=== PATIENT | female | born 1960 | race Caucasian/White ===

== ENCOUNTER 2023-03-09 11:00 | Outpatient (RCR) | payer OTHER, SELFPAY ==
--- NOTE | 2023-02-13 09:50 | HP.PTEVAL_ITS ---
Patient's Visit Information Visit Information Visit Information: ROGER CHAO is a 63 year old F referred to Physical Therapy by Dr. Nima Manning DPM with a diagnosis of R post tibial tendonitis. Date of Evaluation: 02/13/23 Physical Therapist: Gerald Bourne DPT, OCS, CSCS Visit Plan Frequency: 3x /Week Duration: 4-6 Weeks Plan: 3x/week for 3-6 weeks for 1. US nonthermal R PTT insertion 2 massage and mobs to R ankle and foot and PROM inv, ev, DF 3. strength and proprioception R ankle Pt may bring in TENS for instruct ensure pt taking stress off R ankle to heal Subjective Subjective: 3 weeks of r ankle pain, may have had a gout attack. Couldn't walk properly and went out of town and did lots of walking and then too painful to walk., Achilles flared up as she was not walking properly. 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 Pain was 9/10 and could not walk 10 feet. This weekend limped and avoided standing but hurt at 4. Worse later in day. This is new to her. Went to [facility] and took blood draws and x rays 2 weeks ago and normal. Went to foot doctor and he poked around and found soreness. he sent for PT and gave antiinflammatory which she has not filled due to side effects. Doing achilles stretch also from doctor. Sleep is in recliner for 2 weeks due to bed upstairs. Steps are hard. L leg taking much of stress and sometimes aches at night. Not employed. Basic ADLs are getting easier but hard to cook and turn in kitchen. Basic ADLS are getting done herself slowly. Hobbies: sitting hobbies sewing quilting and can do those. Was hard to sew the first couple weeks, avoided driving for first two weeks. Got insoles from doctor but cannot wear them due to pain, will bring them in for review. Pain R medial ankle: Pain Intensity (Out of 10): 0 Pain Intensity Range: 0 and 9 Comment: 0 at rest, Objective Objective: Antalgia R ambulating into PT today avoiding pushoff and turning R foot outward and short L step length. Trasnfers bed and chair I. Tender to palpation maximally over R post tib insertion pointedly but nowhere else today. AROM inv R 14 and L 16, pain R. eversion 10 B. DF 0 R and 3 L, PF 50 B. strength inversion R painful and 3+, others 4/5 in B ankles. reflexes 2/3 patella and achilles B. sensation LE WNL to gross light touch. Stance shows decent arch B. tends to stand with R foot pointed out. - talar tilt, stiffness present B in metatarsals and calcaneal mobs. Balance/Special Test Scores Lower Extremity Functional Score: 32 Goals Goal 1:: patient painfree ambulating into PT Goal Time Frame: 4-6 Weeks Goal 2:: I appropr HEP to limit stress to PTT adn future problems Goal Time Frame: 4-6 Weeks Goal 3:: Patient feel 90% better in pain at 1/10 at worst and back to normal actvity Goal Time Frame: 4-6 Weeks Goal 4:: LEFS score48 Goal Time Frame: 4-6 Weeks Rehabilitation Potential Physical Therapy Diagnosis: weakness and pain limiting funciton and ambulation in R ankle, likely walked inverted with gout and flared up PTT insertion. Rehabilitation Potential: Good Anticipated Interventions Patient/Client Instruction: Educate patient on: Condition and Plan of Care For the Purpose of:: To decrease pain, To increase ROM, To improve nutrient delivery to tissue, To improve muscle performance and motor function, To increase tolerance to activity/condition/position, To improve ability of physical actions for home/community/work/leisure and To improve gait and locomotor functions Therapeutic Exercise to Include: Strength training, Balance training, Flexibilty training, Gait and locomotor training, Passive ROM and Active ROM For the Purpose of:: To decrease pain, To increase ROM, To improve nutrient delivery to tissue, To improve muscle performance and motor function, To increase tolerance to activity/condition/position, To improve gait and locomotor functions and To improve health of tissue Manual Therapy Techniques to Include: Mobilization, Passive ROM and Soft tissue mobilization For the Purpose of:: To decrease pain, To increase ROM, To improve nutrient delivery to tissue, To improve muscle performance and motor function and To increase tolerance to activity/condition/position TENS: Yes Cryotherapy (ice pack, ice massage): Yes Ultrasound (thermal/non thermal): Yes For the Purpose of:: To decrease pain, To decrease swelling/inflammation and To improve nutrient delivery to tissue Text: Thank you for the opportunity to evaluate your patient. For Medicare and Medicare HMO plans, please review the plan of care and approve it. It will need to be FAXED BACK to us at [phone] for Medicare purposes. For Medicare only, by signing this I certify the plan of care. Please let me know if there are questions or concerns regarding this plan of care. Physician Signature: Date:
--- NOTE | 2023-03-09 11:50 | HP.PTDCSUM ---
Discharge Summary D/C summary: It has been my pleasure to treat ROGER CHAO referred by MONIQUE CampbellM, with the diagnosis of R post tibial tendonitis for a total of 10 visit(s). Discharge Date: 03/09/23 Please see the following information for a summary of their discharge status. Subjective Subjective: Pain 1-2/10 intermittently still if on feet too much or climbing many steps. Gone quickly here. Avoids stadning too long and walking alot at store. Can't do more than 30 minutes. Sleep is OK. Home activity mostly normal. HEP : daily stretching and band. To doctor in 2-3 weeks. Pain R medial ankle: Pain Intensity (Out of 10): 0 Overall Improvement % Improvement: 95 Objective Objective/Function: 0 DF, still tight on R and L. Good ROM otherwise but resisted inversion still slightly transiently painful. Walks with slight R antalgia today but pretty comfortable. Pt wishes to try HEP vs continued therapy and will f/u with doctor and call if problems or needs more therapy Goals Goal 1:: patient painfree ambulating into PT Goal Progress: Progressing Goal 2:: I appropr HEP to limit stress to PTT adn future problems Goal Progress: Goal Met Goal 3:: Patient feel 90% better in pain at 1/10 at worst and back to normal actvity Goal Progress: Goal Met Goal 4:: LEFS score48 Goal Progress: Goal Met Plan Plan: d/c D/C Information Discharge Comments: Pt to f/u with doctor in two weeks and will continue HEP in the meantime. d/c sentence: If there are questions or concerns regarding this patient's physical therapy, please feel free to call me at [phone]. Thank you for the referral of this patient. Sincerely, Gerald Bourne, DPT, OCS, CSCS Balance/Gait/Functional tests Balance/Special Test Scores Lower Extremity Functional Score: 53 Improvement % Improvement: 95
== END 2023-03-09 19:00 | disposition home or self-care (01) ==
LOC: PT 11:00
PROVIDERS: PCP Family Medicine; Referring Provider Student in an Organized Health Care Education/Training Program; Visit Provider Student in an Organized Health Care Education/Training Program
DX: M76.821 Posterior tibial tendinitis, right leg (principal); M76.61 Achilles tendinitis, right leg
CPT/HCPCS: 97035; 97110; 97140; 97161; 97164

== ENCOUNTER → 2024-08-02 | Outpatient (CLI) | payer OTHER, SELFPAY | END | disposition home or self-care (01) | LOC: MTLAB 08:48 | PROVIDERS: PCP Nurse Practitioner Family; Referring Provider Nurse Practitioner Family; Visit Provider Nurse Practitioner Family | DX: R53.1 Weakness (principal); R53.82 Chronic fatigue, unspecified; H93.19 Tinnitus, unspecified ear; R60.0 Localized edema; I10 Essential (primary) hypertension; I49.9 Cardiac arrhythmia, unspecified; R07.89 Other chest pain; R00.2 Palpitations; R06.00 Dyspnea, unspecified; R05.9 Cough, unspecified; K59.00 Constipation, unspecified; R19.7 Diarrhea, unspecified; K21.9 Gastro-esophageal reflux disease without esophagitis; M25.561 Pain in right knee; R45.4 Irritability and anger; F41.9 Anxiety disorder, unspecified; F32.A Depression, unspecified; E28.9 Ovarian dysfunction, unspecified | CPT/HCPCS: 36415 ==

== ENCOUNTER → 2024-08-30 | Outpatient (CLI) | payer OTHER, SELFPAY ==
--- NOTE | 2024-08-30 08:15 | EKG12_ITS ---
Test Reason : PALPS Blood Pressure : */* mmHG Vent. Rate : 77 BPM Atrial Rate : 77 BPM P-R Int : 166 ms QRS Dur : 90 ms QT Int : 418 ms P-R-T Axes : 55 25 47 degrees QTcB Int : 473 ms Normal sinus rhythm RSR' or QR pattern in V1 suggests right ventricular conduction delay Borderline ECG Confirmed by RAND SOSA ([id number]), newspaper copy editor CAROLIN JAIME ([id number]) on 09/02/2024 8:11:39 AM Referred By: Fay Dc Confirmed By: RAND SOSA
== END | disposition home or self-care (01) ==
LOC: PSN 08:13
PROVIDERS: PCP Nurse Practitioner Family; Referring Provider Nurse Practitioner Family; Visit Provider Nurse Practitioner Family
DX: R00.2 Palpitations (principal); R06.00 Dyspnea, unspecified
CPT/HCPCS: 93005

== ENCOUNTER → 2024-09-10 | Outpatient (CLI) | payer OTHER, SELFPAY ==
[2024-09-10 12:19] LABS: Absolute Lymphocyte Count 1.71 X10^3/uL (0.83-4.51); Absolute Neutrophil Count 3.5 X10^3/uL (2.0-7.7); Basophil# 0.03 X10^3/uL; Basophil% 0.5 % (0-1); Eosinophil# 0.19 X10^3/uL; Eosinophils% 3.3 % (0-5); Hematocrit 36.3 % (37-47); Hemoglobin 11.9 g/dL (12.0-15.0); Lymphocyte # 1.71 X10^3/ul (0.83-4.51); Lymphocyte % 29.8 % (19-41); Mean Corp Hgb Conc 32.8 g/dL (32-36); Mean Corpuscular Volume 88.5 fL (81-99); Mean Platelet Vol. 10.6 fl (6.2-12.0); Monocyte# 0.34 X10^3/uL; Monocyte% 5.9 % (0-10); NRBC Flagged by Analyzer 0 % (0-5); Neutrophil # 3.45 X10^3/uL (2.7-7.7); Neutrophil % 60.2 % (47-70); Platelet Count 278 K/mm3 (150-450); RBC Distribution Width CV 14.3 % (11.6-14.6); RBC Distribution Width SD 45.7 fl (35.1-43.9); White Blood Count 5.7 K/mm3 (4.4-11.0)
[2024-09-10 12:26] LABS: Fibrinogen 485 mg/dl (203-444)
[2024-09-10 12:38] LABS: Hemoglobin A1c 5.7 % (<=5.6)
[2024-09-10 13:09] LABS: ALB/GLOB Ratio 1.1 RATIO (0.9-2.4); AST(SGOT) 21 U/L (<=31); Alanine Aminotransfer ALT/SGPT 19 U/L (<=34); Albumin, Serum 3.9 g/dL (3.4-4.8); Alkaline Phosphatase 75 U/L (35-104); Anion Gap 11 (5-15); BUN 12 mg/dL (4-19); BUN/Creat Ratio 17.6 RATIO (10-20); Calcium,Total 9.3 mg/dL (7.6-11.0); Carbon Dioxide 23.3 mmol/L (21.0-32.0); Chloride 104 mmol/L (98-108); Cholesterol 180 mg/dL (<=200); Creatinine, Serum 0.68 mg/dL (0.70-1.20); EST Glomerular Filtration Rate 97 (>60); Ferritin 136 ng/mL (22-378); Globulin 3.6 g/dL (2.2-4.2); Glucose 97 mg/dL (70-99); High Density Lipoprotein 51 mg/dL; Low Density Lipoprotein Calc. 79 mg/dL; Potassium 4.1 mmol/L (3.3-5.1); Protein, Total 7.6 g/dL (5.9-8.4); Sodium Level 138 mmol/L (133-145); Total Bilirubin 0.38 mg/dL (0.00-1.30); Triglycerides 252 mg/dL; Very Low Density Lipoprotein 50 mg/dL (5-40); Vitamin B12 477 pg/mL (180-914); Vitamin D,25 Hydroxy 17.6 ng/mL (30-100); cholesterol:hdl ratio screen 3.54
[2024-09-10 13:28] LABS: Iron 64 ug/dL (50-170)
--- OUTSIDE RECORDS SUMMARY | 2024-09-10 21:18 | XMS RPT_ITS | CCD ---
Author Organization [facility] ion Partnership [facility] Care Team Providers Care Inspector Rough Castings Name Role Phone EWA UP PAC Admitting Unavailable UP EWA PAC Attending Unavailable ANNEL EWA PAC Primary Care Unavailable CHERRY CIFUENTES Consulting Unavailable PROVIDER, UNKNOWN Consulting Unavailable PROVIDER, UNKNOWN Consulting Unavailable PROVIDER, UNKNOWN Consulting Unavailable Dao MARINE ENGINEERING CONSULTANT-C, Fay Bunn Primary Care Provider Un available Dao MARINE ENGINEERING CONSULTANT-C, Fay Bunn Attending Provider Unava gregorio Dc NP-C, Fay Bunn Referring Provider Unava gregorio Huerta MD, Dr. Lacey Attending Provider Dao MARINE ENGINEERING CONSULTANT, Fay Bunn Referring Unavailabl e Dao MARINE ENGINEERING CONSULTANT, Fay Sepideh Attending Unavailabl e Dao MARINE ENGINEERING CONSULTANT, Fay K Primary Care Unavailabl e Dao MARINE ENGINEERING CONSULTANT, Fay Sepideh Attending Unavailabl e Dao MARINE ENGINEERING CONSULTANT, Fay K Primary Care Unavailabl e Dao MARINE ENGINEERING CONSULTANT, Fay K Referring Unavailabl e Dao MARINE ENGINEERING CONSULTANT, Fay K Referring Unavailabl e Dao MARINE ENGINEERING CONSULTANT, Fay K Attending Unavailabl e Dao MARINE ENGINEERING CONSULTANT, Fay K Primary Care Unavailabl e Dao MARINE ENGINEERING CONSULTANT, Fay K Referring Unavailabl e Rand Huerta Attending Unavailable Dao MARINE ENGINEERING CONSULTANT, Fay K Primary Care Unavailabl e Allergies Allergy Classification Reported Allergen(s) Allergy Type Date of Onset Reaction(s) Facility (1 source) Cephalexin Drug Allergy [facility] Repository (2 sources) Cephalexin Drug Allergy 03-22-2014 Other [facility] (1 source) Cephalexin Drug Allergy 03-22-2014 [facility] Repository Problems Problem Classification Problem Date Documented Da te Episodic/Chronic Cardiac dysrhythmias (2 sources) Palpitations; Translations: [Palpitations] Onset: 08-28-2024 Episodic Malaise and fatigue (1 source) Weakness; Translations: [Weakness] Onset: 08-07-2024 Episodic Other lower respiratory disease (1 source) Dyspnea, unspecified; Translations: [Dyspnea, unspecified] Onset: 08-28-2024 Episodic Results Test Name Value Interpretation Reference Range Facility Electrocardiogram reportOrde red By: Rand Huerta on 09-02-2024 EKG study [facility] Cardi[facility] Services [address] [place] [address] 12 Lead EKG 08/30/24 0821 MR#: [id number] Acct: [id number] Name: ROGER CHAO Rep #:[id number] : 1960 64 From: Rand Huerta MD Attending Dr: Fay Dc, MARINE ENGINEERING CONSULTANT-C Status: REG CLI Ordering Dr: Fay Dc NP MARINE ENGINEERING CONSULTANT-C Date: 08/30/24 Location: N Sex: F C Admitted: Test Reason : PALPS Blood Pressure : */* mmHG Vent. Rate : 77 BPM Atrial Rate : 77 BPM P-R Int : 166 ms QRS Dur : 90 ms QT Int : 418 ms P-R-T Axes : 55 25 47 degrees QTcB Int : 473 ms Normal sinus rhythm RSR' or QR pattern in V1 suggests right ventricular conduction delay Borderline ECG Confirmed by RAND HUERTA ([id number]), editorial manager CAROLIN JAIME ([id number]) on 09/02/2024 8:11:39 AM Referred By: Fay Dc Confirmed By: RAND HUERTA 09/02/24 0811 Date _ Rand Huerta MD CC: MARINE ENGINEERING CONSULTANT-C Fay Dc ~ Signed [facility] Work Phone: [phone] Lead EKGon 08-30-2024 12 Lead EKG [facility] Cardi[facility] Services [address] [place] [address] 12 Lead EKG 08/30/24 0821 MR#: [id number] Acct: [id number] Name: ROGER CHOA Rep #: [id number] : 1960 64 From: Rand Huerta MD Attending Dr: Fay Dc, MARINE ENGINEERING CONSULTANT-C Status: R EG CLI Ordering Dr: Fay Dc MARINE ENGINEERING CONSULTANT MARINE ENGINEERING CONSULTANT-C Date: 08/30 Location: PSN Sex: F C Admitted: Test Reason : PALPS Blood Pressure : */* mmHG Vent. Rate : 77 BPM Atrial Rate : 77 BPM P-R Int : 166 ms QRS Dur : 90 ms QT Int : 418 ms P-R-T Axes : 55 25 47 degrees QTcB Int : 473 ms Normal sinus rhythm RSR' or QR pattern in V1 suggests right ventricular conduction delay Borderline ECG Confirmed by RAND HUERTA ([id number]), editorial manager CAROLIN JAIME ([id number]) on 09/02/2024 8:11:39 AM Referred By: Fay Dc Confirmed By: RAND HUERTA 09/02/24 0811 Date Rand Huerta MD CC: MARINE ENGINEERING CONSULTANT-C Fay Dc Signed [facility] [id number] 08-16-2024 [facility] Misc. 2 [facility] Comment on above: Result Comment: TEST RESULTS LIMITS Amino Acid Profile, Qn, Plasma Taurine, 41.4 umol/L 29.2-132.3 Aspartate, 1.3 umol/L 0.0-7.4 Hydroxyproline, 13.4 umol/L 4.7-35.2 Threonine, 158.5 umol/L 67.8-211.6 Serine, 81.4 umol/L 48.7-145.2 Asparagine, 56.5 umol/L 29.5-84.5 Glutamate, 43.4 umol/L 18.1-155.9 Glutamine, 515.4 umol/L 372.8-701.4 Sarcosine, 1.0 umol/L 0.0-4.0 Alpha-aminoadipate, 1.3 umol/L 0.0-1.9 Proline, 188.6 umol/L 84.8-352.5 Glycine, 315.2 umol/L 144.0-411.0 Alanine, 432.7 umol/L 209.2-515.5 Citrulline, 29.5 umol/L 15.6-46.9 Alpha-aminobutyrate, 15.6 umol/L 5.4-34.5 Valine, 235.8 umol/L 133.0-317.1 Cystine, 46.9 umol/L 15.8-47.3 Methionine, 21.0 umol/L 14.7-35.2 Homocitrulline, <0.5 umol/L 0.0-1.7 Cystathionine, <0.5 umol/L 0.0-0.7 Alloisoleucine, 2.1 umol/L 0.0-3.2 Isoleucine, 59.2 umol/L 32.8-88.3 Leucine, 117.4 umol/L 66.7-165.7 Tyrosine, 69.4 umol/L 27.8-83.3 Phenylalanine, 56.5 umol/L 35.8-76.9 Argininosuccinate, <0.1 umol/L 0.0-3.0 Beta-alanine, 2.8 umol/L 1.1-9.0 Beta-aminoisobutyrate, 0.7 umol/L 0.0-4.3 Homocystine, <0.3 umol/L 0.0-0.2 Gamma-aminobutyrate, <0.5 umol/L 0.0-0.6 Tryptophan, 44.1 umol/L 23.5-93.0 Hydroxylysine, 0.2 umol/L 0.1-0.8 Ornithine, 44.1 umol/L 30.1-101.3 Lysine, 195.5 umol/L 94.0-278.0 Histidine, 60.0 umol/L 47.2-98.5 Arginine, 90.3 umol/L 36.3-119.2 Interpretation No evidence of aminoacidopathy by quantitative plasma amino acid analysis. Director Review Technical Component analysis performed at [facility] Professional Component interpretation performed by: Arabella Glover, PhD, [facility] Director, Biochemical Genetics [facility] LCTGD1, [address] [facility] [address] To discuss these results or other testing for inborn errors of metabolism, please contact our Biochemical Geneticists at [phone] GENE([phone]), [facility] Genetics Customer Service, [place], [place]. Methodology Amino acid concentrations were obtained by LC-MS/MS analysis. TESTING PERFORMED AT [facility]. ORIGINAL REPORT ON FILE IN LAB CONTAINS ADDITIONAL TEST SITE INFORMATION. Performed By: #### L 3410.9994 #### [facility] [address] [place], [address] [id number] 08-12-2024 [facility] Misc. 3 COMMENT Normal . [facility] Comment on above: Result Comment: Test Ordered: [id number] Heavy Metals Profile, Urine Test(s) 011835-Iiuctfl (Total),U; 298085-Cllw, Urine; 970229-Tpqzymy, Urine was developed and its performance characteristics determined by [facility]. It has not been cleared or approved by the Food and Drug Administration. Creatinine(Lead Data Entry Operator),U 0.78 g/L Reference Range: 0.30-3.00 Detection Limit = 0.10 Arsenic (Total),U Note: ug/L MX None Detected Reference Range: 0-9 Detection Limit = 10 As (Total)/Lead Data Entry Operator Ratio MARINE ENGINEERING CONSULTANT NOLAB Reference Range: . Arsenic,Urine 24 Hr MARINE ENGINEERING CONSULTANT NOLAB Reference Range: . Lead, Urine Note: ug/L BN None Detected Reference Range: 0-49 Detection Limit = 1 Lead/Creat. Ratio MARINE ENGINEERING CONSULTANT NOLAB Reference Range: . Lead, Urine (24 Hr) MARINE ENGINEERING CONSULTANT NOLAB Reference Range: . Mercury, Urine Note: ug/L BN None Detected Reference Range: 0-19 Detection Limit = 1 Mercury/Creat. Ratio MARINE ENGINEERING CONSULTANT NOLAB Reference Range: . Mercury,Urine 24 Hr MARINE ENGINEERING CONSULTANT NOLAB Reference Range: . Performed at: [address] [id number] Hot Room Attendant: Bereket Laguna MD, Phone: [phone] Performed at: [facility] [address] [place] [id number] Hot Room Attendant: Leelee Elliott [facility], Phone: [phone] Performed at: [address] [id number] Hot Room Attendant: Mitchel Conklin PhD, Phone: [phone] Performed By: #### L 3410.9996 #### [facility] [address] [facility]. [place], [place], [id number] L3410.9992on 08-06-2024 [facility] COMMENT Normal . [facility] Comment on above: Order Comment: [id number] APOLIPOPROTEIN SST RT Result Comment: Test Ordered: [id number] Apolipoprotein A-1 Apolipoprotein A-1 161 mg/dL Reference Range: 116-209 Performed at: [facility] [address] [id number] Hot Room Attendant: Bereket Laguna MD, Phone: [phone] Performed at: [address] [id number] Hot Room Attendant: Mithcel Conklin PhD, Phone: [phone] Performed By: #### L 3410.9992 #### [facility] [address] [facility]. [place], [place], [id number] CBC (INCLUDES DIFF/PLT)on Basophils (Bld) [#/Vol] 0.036 10*3/uL Normal 0-200 [facility] Comment on above: Performed By: #### 9 , 63 #### [facility] [address] , [address] [place] [phone] Director: Jordan Matta MD Basophils/100 WBC (Bld) 0.4 % Normal [facility] Comment on above: Performed By: #### 9 , 98 #### [facility] [address], [address] [place] [phone] Director: Jordan Matta MD Eosinophils (Bld) [#/Vol] 0.189 10*3/uL Normal 15-500 [facility] Comment on above: Performed By: #### 9 , 6399 #### [facility] [place] [address] Director: Jordan Matta MD Eosinophils/100 WBC (Bld) 2.1 % Normal [facility] Comment on above: Performed By: #### 12 06, 6399 #### [facility] [place] [address] Director: Jordan Matta MD Erythrocyte distribution width (RBC) [Ratio] 12.9 % Normal 11.0-15.0 [facility] Comment on above: Performed By: #### 9 , 6399 #### [facility] [place] [address] Director: Jordan Matta MD Hematocrit (Bld) [Volume fraction] 38.8 % Normal 35.0-45.0 [facility] Comment on above: Performed By: #### 9 , 6399 #### [facility] [place] [address] Director: Jordan Matta MD Hemoglobin (Bld) [Mass/Vol] 12.9 g/dL Normal 11.7-15.5 [facility] Comment on above: Performed By: #### 12 06, 6399 #### [facility] [place] [address] Director: Jordan Matta MD Lymphocytes (Bld) [#/Vol] 1.818 10*3/uL Normal 850-3900 [facility] Comment on above: Performed By: #### 9 , 6399 #### [facility] [place] [address] Director: Jordan Matta MD Lymphocytes/100 WBC (Bld) 20.2 % Normal [facility] Comment on above: Performed By: #### 9 , 6399 #### [facility] of [address] [place] [address] Director: Jordan Matta MD MCH (RBC) [Entitic mass] 28.4 pg Normal 27.0-33.0 [facility] Comment on above: Performed By: #### 9 , 6399 #### [facility] [place] [address] Director: Jordan Matta MD MCHC (RBC) [Mass/Vol] 33.2 g/dL Normal 32.0-36.[address] [facility] Comment on above: Performed By: #### 9 , 6399 #### [facility] [place] [address] Director: Jordan Matta MD MCV (RBC) [Entitic vol] 85.5 fL Normal 80.0-100.0 [facility] Comment on above: Performed By: #### 9 , 6399 #### [facility] [place] [address] Director: Jordan Matta MD Monocytes (Bld) [#/Vol] 0.513 10*3/uL Normal 200-950 [facility] Comment on above: Performed By: #### 9 , 6399 #### [facility] [place] [address] Director: Jordan Matta MD Monocytes/100 WBC (Bld) 5.7 % Normal [facility] Comment on above: Performed By: #### 9 , 6399 #### [facility] [place] [address] Director: Jordan Matta MD Neutrophils (Bld) [#/Vol] 6.444 10*3/uL Normal 9572-8364 [facility] Comment on above: Performed By: #### 9 , 6399 #### [facility] [place] [address] Director: Jordan Matta MD Neutrophils/100 WBC (Bld) 71.6 % Normal [facility] Comment on above: Performed By: #### 9 , 6399 #### [facility] [place] [address] Director: Jordan Matta MD Platelet mean volume (Bld) [Entitic vol] 10.7 fL Normal 7.5-12.5 [facility] Comment on above: Performed By: #### 9 , 6399 #### [facility] [place] [address] Director: Jordan Matta MD Platelets (Bld) [#/Vol] 335 10*3/uL Normal 140-400 [facility] Comment on above: Performed By: #### 9 , 6399 #### [facility] [place] [address] Director: Jordan Matta MD RBC (Bld) [#/Vol] 4.54 10*6/uL Normal 3.80-5.10 [facility] Comment on above: Performed By: #### 9 , 6399 #### [facility] [place] [address] Director: Jordan Matta MD WBC (Bld) [#/Vol] 9.0 10*3/uL Normal 3.8-10.8 [facility] Comment on above: Performed By: #### 9 , 6399 #### [facility] [place] [address] Director: Jordan Matta MD URIC ACIDon 01-21-2023 Urate [Mass/Vol] 5.1 mg/dL Normal 2.5-7.0 [facility] Comment on above: Result Comment: Ther apeutic target for gout patients: <6.0 mg/dL Performed By: #### 9 05, 6399 #### [facility] [place] [address] Director: Jordan Matta MD ANKLE COMPLETE RTon 01-21-20 ANKLE COMPLETE RT [facility] [address] [place] [address] Patient: ROGER CHAO Phone#: : 1960 Age: 63 Gender: F Pt. Type: Out Account: [id number] Location: Ordering: EWA UP Exam Date: 01/20/2023/15:54 Family Phys: Charge Code: 767451 Physician: [place] Order #: [id number] Dose#: PROCEDURE: X-RAY ANKLE COMPLETE RT MIN 3 VIEWS COMPARISON: None. INDICATIONS: Right ankle pain. FINDINGS: BONES: Degenerative changes are present at the ankle. There is no evidence of acute bone abnormality. A small calcaneal spur is present. SOFT TISSUES: Mild lateral soft tissue swelling is present. EFFUSION: None visible. OTHER: Negative. CONCLUSION: 1. Mild degenerative changes are present at the ankle. Dictated by: Madiha Escobar MD on 01/20/2023 at 16:28 Approved by: Madiha Escobar MD on 01/20/2023 at 16:29 Normal [facility] Encounters Encounter Date Encounter Type Care Provider Facility Start: 08-30-2024 End: 08-30-2024 Non-patient / Non-visit Dr. Rand Huerta MD -[facility] Work Phone: Start: 08-30-2024 End: 08-30-2024 ambulatory Fay Dc NP-C [facility] Work Phone: Start: 08-30-2024 End: 08-30-2024 Patient encounter procedure Fay Dc NP-C -Pulmonary Services/Neurology Work Phone: Start: 08-30-2024 End: 08-30-2024 ambulatory Fay Dc NP Facility:[facility] Start: 08-02-2024 End: 08-02-2024 ambulatory Fay Dc NP-C [facility] Work Phone: Start: 08-02-2024 End: 08-02-2024 Patient encounter procedure Fay Dc NP-C -[facility] Phone: Start: 08-02-2024 End: 08-02-2024 ambulatory Fay Dc NP Facility:[facility] Start: 01-20-2023 End: 01-20-2023 ambulatory EWA UP [facility] Procedures Date Procedure Procedure Detail Performing Clinician Start: 08-02-2024 End: 08-02-2024 Procedure Fay Dc MARINE ENGINEERING CONSULTANT-C Comment on above: Test Ordered: [id number] Apolipoprotein A-1A polipoprotein A-1 161 mg/dL Reference Range: 116-209Performed at: [address] [id number] Director: Bereket Laguna MD, Phone: [phone] at: [address] [id number] Director: Mitchel Conklin PhD, Phone: [phone] Test Ordered: [id number] Heavy Metals Profile, UrineTest(s) 597128-Pqgfpfh (Total),U; 477267-Vyci, Urine;382201-Grxpxta, Urinewas developed and its performance characteristicsdetermined by [facility]. It has not been cleared or approvedby the Food and Drug Administration.Creatinine(Lead Data Entry Operator),U 0.78 g/L Reference Range: 0.30-3.00 Detection Limit = 0.10Arsenic (Total),U Note: ug/L MX None Detected Reference Range: 0-9 Detection Limit = 10As (Total)/Lead Data Entry Operator Ratio MARINE ENGINEERING CONSULTANT NOLAB Reference Range: .Arsenic,Urine 24 Hr MARINE ENGINEERING CONSULTANT NOLAB Reference Range: .Lead, Urine Note: ug/L BN None Detected Reference Range: 0-49 Detection Limit = 1Lead/Creat. Ratio MARINE ENGINEERING CONSULTANT NOLAB Reference Range: .Lead, Urine (24 Hr) MARINE ENGINEERING CONSULTANT NOLAB Reference Range: .Mercury, Urine Note: ug/L BN None Detected Reference Range: 0-19 Detection Limit = 1Mercury/Creat. Ratio MARINE ENGINEERING CONSULTANT NOLAB Reference Range: .Mercury,Urine 24 Hr MARINE ENGINEERING CONSULTANT NOLAB Reference Range: .Performed at: [address] [id number] Director: Bereket Laguna MD, Phone: [phone] at: [facility] [address] [place] [id number] Director: Leelee Elliott [facility], Phone: [phone] at: [facility] Center[facility]mohj[address] [place], [place] [id number] Director: Mitchel Conklin PhD, Phone: [phone] TEST RESULTS LIMITSA lopez Acid Profile, Qn, Plasma Taurine, 41.4 umol/L 29.2-132.3 Aspartate, 1.3 umol/L 0.0-7.4 Hydroxyproline, 13.4 umol/L 4.7-35.2 Threonine, 158.5 umol/L 67.8-211.6 Serine, 81.4 umol/L 48.7-145.2 Asparagine, 56.5 umol/L 29.5-84.5 Glutamate, 43.4 umol/L 18.1-155.9 Glutamine, 515.4 umol/L 372.8-701.4 Sarcosine, 1.0 umol/L 0.0-4.0 Alpha-aminoadipate, 1.3 umol/L 0.0-1.9 Proline, 188.6 umol/L 84.8-352.5 Glycine, 315.2 umol/L 144.0-411.0 Alanine, 432.7 umol/L 209.2-515.5 Citrulline, 29.5 umol/L 15.6-46.9 Alpha-aminobutyrate, 15.6 umol/L 5.4-34.5 Valine, 235.8 umol/L 133.0-317.1 Cystine, 46.9 umol/L 15.8-47.3 Methionine, 21.0 umol/L 14.7-35.2 Homocitrulline, <0.5 umol/L 0.0-1.7 Cystathionine, <0.5 umol/L 0.0-0.7 Alloisoleucine, 2.1 umol/L 0.0-3.2 Isoleucine, 59.2 umol/L 32.8-88.3 Leucine, 117.4 umol/L 66.7-165.7 Tyrosine, 69.4 umol/L 27.8-83.3 Phenylalanine, 56.5 umol/L 35.8-76.9 Argininosuccinate, <0.1 umol/L 0.0-3.0 Beta-alanine, 2.8 umol/L 1.1-9.0 Beta-aminoisobutyrate, 0.7 umol/L 0.0-4.3 Homocystine, <0.3 umol/L 0.0-0.2 Gamma-aminobutyrate, <0.5 umol/L 0.0-0.6 Tryptophan, 44.1 umol/L 23.5-93.0 Hydroxylysine, 0.2 umol/L 0.1-0.8 Ornithine, 44.1 umol/L 30.1-101.3 Lysine, 195.5 umol/L 94.0-278.0 Histidine, 60.0 umol/L 47.2-98.5 Arginine, 90.3 umol/L 36.3-119.2InterpretationNo evidence of aminoacidopathy by quantitative plasma amino acid analysis.Director ReviewTechnical Component analysis performed at [facility] RTPProfessional Component interpretation performed by:Arabella Glover, PhD, FACMGDirector, Biochemical GeneticsF[facility]burg [facility] Hospital [facility] [facility] [address]Za discuss these results or other testing for inborn errorsof metabolism, please contact our Biochemical Geneticists [phone] [phone]), [facility] [employer] Customer Service, [place], [place].Methodology Amino acid concentrations were obtained by LC-MS/MS analysis. TESTING PERFORMED AT [facility]. ORIGINAL REPORT ON FILE IN LAB CONTAINS ADDITIONAL TEST SITE INFORMATION. Plan of Treatment Date Care Activity Detail Author Start: 10-02-2024 ambulatory Ambulatory Facility:[facility] Start: 08-02-2024 End: 08-02-2024 Procedure [facility] spital Immunizations Immunization Date Immunization Notes Care Provider Josh danielle 03-22-2014 tetanus toxoid, redu margaret diphtheria toxoid, and acellular pertussis vaccine, adsorbed Fay ADAME [facility] Payers Date Payer Category Payer Self-pay 2006 Unknown [id number] 2006 Unknown [id number] 1960 Unknown [id number] 2.16.8 [id number] Unknown [id number] 2.16.8 [id number] Unknown [id number] 2.16.8 [id number] Unknown [id number] 2.16.8 [id number] Unknown [id number] 2.16.8 [id number] Social History Date Type Detail Facility Start: 03-22-2014 Tobacco smoking stat [facility] Never smoked tobacco (finding) [facility] Start: 1960 Sex Assigned At Female [facility] Evaluation note Note Date & Type Note Facility Evaluation note No assessment information availa ble [facility] Work Phone: Reason for referral (narrative) Note Date & Type Note Facility Reason for referral (narrative) No reason for referral information available [facility] Work Phone: Summary Purpose Family History No Family History Records FoundNo Family History Records FoundNo Family History Records Found Advance Directives No Advanced Directives Records FoundNo Advanced Directives Records FoundNo Advanced Directives Records Found Chief Complaint and Reason for Visit Chief Complaint Admit Date PALPITATIONS August 30, 2024 8:12a m PALPITATIONS August 30, 2024 8:21a m Additional Source Comments INFORMATION SOURCE (unrecogn ized section and content) DATE CRE[facility] DATE CREATED AUTHOR AUTHOR'S ORGANIZ ATION 01/22/2023 [facility] DATE CREATED AUTHOR AUTHOR'S ORGANIZ ATION 09/07/2024 [facility] Care Teams (unrecognized sec tion and content) Team Status: Active Member Role Status Dates Fay Dc MARINE ENGINEERING CONSULTANT, MARINE ENGINEERING CONSULTANT-C Primary Care Provider Activ e Team Status: Inactive Member Role Status Dates Fay Dc MARINE ENGINEERING CONSULTANT, MARINE ENGINEERING CONSULTANT-C Primary Care Provider Activ e Start: August 02, 2024 End: August 02, 2024 Fay Dc NP, MARINE ENGINEERING CONSULTANT-C Attending Provider Active Start: August 02, 2024 End: August 02, 2024 Fay Dc MARINE ENGINEERING CONSULTANT, MARINE ENGINEERING CONSULTANT-C Referring Provider Active Start: August 02, 2024 End: August 02, 2024 Team Status: Inactive Member Role Status Dates Fay Dc NP, MARINE ENGINEERING CONSULTANT-C Primary Care Provider Activ e Start: August 30, 2024 End: August 30, 2024 Fay Dc NP, MARINE ENGINEERING CONSULTANT-C Attending Provider Active Start: August 30, 2024 End: August 30, 2024 Fay Dc MARINE ENGINEERING CONSULTANT, MARINE ENGINEERING CONSULTANT-C Referring Provider Active Start: August 30, 2024 End: August 30, 2024 Team Status: Active Member Role Status Dates Fay Dc NP, MARINE ENGINEERING CONSULTANT-C Primary Care Provider Activ e Start: August 30, 2024 End: August 30, 2024 Fay Dc MARINE ENGINEERING CONSULTANT, MARINE ENGINEERING CONSULTANT-C Referring Provider Active Start: August 30, 2024 End: August 30, 2024 Dr. Rand Huerta MD Attending Provider Active Start: August 30, 2024 End: August 30, 2024 Goals (unrecognized section and content) Goals may be documented in a n alternate sectionGoals may be documented in an alternate section FOR RECORDS PERTAINING TO PATIENTS WHO ARE OR HAVE BEEN ENROLLED IN A CHEMICAL DEPENDENCY/SUBSTANCEABUSE PROGRAM, SOME INFORMATION MAY BE OMITTED. This clinical summary was aggregated from multiple sources. Caution should be exercised in using it in the provision of clinical care. This summary normalizes information from multiple sources, and as a consequence, information in this document may materially change the coding, format and clinical context of patient data. In addition, data may be omitted in some cases. CLINICAL DECISIONS SHOULD BE BASED ON THE PRIMARY CLINICAL RECORDS. [facility]. provides no warranty or guarantee of the accuracy or completeness of information in this document.
[2024-09-14 01:07] LABS: Coxsackie B-2 Ab Negative (Neg:<1:100); Coxsackie B-3 Ab Negative (Neg:<1:100); Coxsackie B-4 Ab Negative (Neg:<1:100); Coxsackie B-6 Ab Negative (Neg:<1:100); EBV Acute VCA IgM < 36.0 U/mL (0.0-35.9); EBV-VCA IgG > 600.0 U/mL (0.0-17.9); Lipoprotein A <8.4 nmol/L (<75.0); Lyme IgG P18 Ab Absent (.); Lyme IgG P23 Ab Absent (.); Lyme IgG P28 Ab Absent (.); Lyme IgG P30 Ab Absent (.); Lyme IgG P39 Ab Absent (.); Lyme IgG P41 Ab Present (.); Lyme IgG P45 Ab Absent (.); Lyme IgG P58 Ab Absent (.); Lyme IgG P66 Ab Absent (.); Lyme IgG P93 Ab Absent (.); Lyme IgG WB Interpretation Negative (Negative); Lyme IgM P23 Ab Absent (.); Lyme IgM P39 Ab Absent (.); Lyme IgM P41 Ab Absent (.); Lyme IgM WB Interpretation Negative (Negative)
== END | disposition home or self-care (01) ==
LOC: BIMLAB 09:19
PROVIDERS: PCP Nurse Practitioner Family; Referring Provider Nurse Practitioner Family; Visit Provider Nurse Practitioner Family
DX: R53.1 Weakness (principal); R53.82 Chronic fatigue, unspecified; H93.19 Tinnitus, unspecified ear; R60.0 Localized edema; I10 Essential (primary) hypertension; I49.9 Cardiac arrhythmia, unspecified; R07.89 Other chest pain; R00.2 Palpitations; R06.00 Dyspnea, unspecified; R05.9 Cough, unspecified; K59.00 Constipation, unspecified; R19.7 Diarrhea, unspecified; K21.9 Gastro-esophageal reflux disease without esophagitis; M25.561 Pain in right knee; G90.89 Other disorders of autonomic nervous system; R41.89 Other symptoms and signs involving cognitive functions and awareness; R45.4 Irritability and anger; F41.9 Anxiety disorder, unspecified; F32.A Depression, unspecified; E28.9 Ovarian dysfunction, unspecified
CPT/HCPCS: 36415; 80053; 80061; 82306; 82607; 82728; 82746; 83036; 83090; 83540; 83695; 85025; 85384; 86617; 86658; 86664; 86665

== ENCOUNTER → 2024-11-01 | Outpatient (CLI) | payer OTHER, SELFPAY ==
--- NOTE | 2024-11-01 12:44 | ECHOD_ITS ---
Reason For Study Reason For Study: PALPITATIONS, DYSPNEA Procedure This was a 2D Doppler, Color Flow transthoracic echocardiogram. Exam performed in department. Left Ventricle Normal left ventricular size. Mildly increased left ventricular wall thickness. Normal LVEF with estimated ejection fraction of 55 to 60%. No regional wall motion abnormalities. Grade I diastolic function. Right Ventricle Normal right ventricular size and systolic function. Mild RVH. Mitral Valve The mitral valve is structurally normal. No prolapse or stenosis seen. Trivial mitral valve insufficiency. Tricuspid Valve Normal tricuspid valve. Unable to estimate RV systolic pressure due to inadequate jet, pulmonary artery pressure probably normal. Aortic Valve Normal aortic valve. Pulmonic Valve The pulmonic valve is not well visualized. Great Vessels The aortic root is not well visualized. Pericardium/Pleural Epicardial fat. MMode/2D Measurements & Calculations LVIDd: 5.1 cm IVSd: 1.1 cm Ao root diam: 3.2 cm LVIDs: 3.8 cm LVPWd: 1.0 cm FS: 26.6 % asc Aorta Diam: 3.6 cm LAV(MOD-bp): 48.0 ml LVAd ap4: 23.7 cm2 LAV(MOD-bp) Indexed: 23.6 ml/m2 LVLd ap4: 7.4 cm LAV(MOD-sp2): 43.9 ml EDV(MOD-sp4): 66.4 ml LAV(MOD-sp4): 43.6 ml EDV(sp4-el): 64.7 ml LVAs ap4: 11.8 cm2 LVLs ap4: 5.4 cm ESV(MOD-sp4): 23.6 ml ESV(sp4-el): 21.7 ml EF(MOD-sp4): 64.4 % EF(sp4-el): 66.4 % SV(MOD-sp4): 42.7 ml SV(MOD-sp2): 24.7 ml LVAd ap2: 16.4 cm2 LVLd ap2: 5.7 cm SI(MOD-sp4): 21.0 ml/m2 SI(MOD-sp2): 12.1 ml/m2 EDV(MOD-sp2): 39.2 ml EDV(sp2-el): 40.1 ml LVAs ap2: 8.9 cm2 LVLs ap2: 4.7 cm ESV(MOD-sp2): 14.5 ml ESV(sp2-el): 14.2 ml EF(MOD-sp2): 63.0 % SV(sp4-el): 42.9 ml LA A4 area: 17.0 cm2 LA dimension(2D): 3.3 cm TAPSE: 1.9 cm RA A4 area: 13.5 cm2 Time Measurements MV dec time: 0.19 sec Doppler Measurements & Calculations MV E max raul: 75.1 cm/sec Lat Peak E' Raul: 6.3 cm/sec Med Peak E' Raul: 8.2 cm/sec MV A max raul: 83.0 cm/sec E/E' lat: 11.8 E/E' med: 9.2 MV E/A: 0.90 MV V2 max: 91.9 cm/sec MV P1/2t max raul: 77.6 cm/sec Ao V2 max: 115.0 cm/sec MV max P.4 mmHg MV P1/2t: 57.0 msec Ao max P.3 mmHg MV V2 mean: 50.5 cm/sec MV dec slope: 399.3 cm/sec2 Ao V2 mean: 81.9 cm/sec MV mean P.2 mmHg Ao mean P.9 mmHg MV V2 VTI: 22.4 cm MVA(P1/2t): 3.9 cm2 Ao V2 VTI: 25.0 cm AV (velocity ratio): 0.83 LV V1 max: 91.9 cm/sec PA V2 max: 91.0 cm/sec LV V1 max P.4 mmHg PA V2 mean: 57.6 cm/sec LV V1 mean P.9 mmHg PA V2 VTI: 18.7 cm LV V1 mean: 67.1 cm/sec LV V1 VTI: 20.7 cm ECHO/Echo Complete Interpretation Summary Normal left ventricular size. Mildly increased left ventricular wall thickness. Normal LVEF with estimated ejection fraction of 55 to 60%. No regional wall motion abnormalities. Grade I diastolic function. Normal right ventricular size and systolic function. Mild RVH. No hemodynamically significant valvular heart disease. Epicardial fat. Ordering Physician: Dao^Fay^Sepideh^^FLOW MACHINE OPERATOR, FLOW MACHINE OPERATOR-C Referring Physician: Fay Dc Performed By: Rafael TORRES RDCS, Sabina and Student
== END | disposition home or self-care (01) ==
PROVIDERS: PCP Nurse Practitioner Family; Referring Provider Nurse Practitioner Family; Visit Provider Nurse Practitioner Family
DX: R06.00 Dyspnea, unspecified (principal); R00.2 Palpitations
CPT/HCPCS: 93306